=== PATIENT | female | born 1980 | race Caucasian/White ===

== ENCOUNTER 2016-08-24 21:28 | Emergency (ER) | payer OTHER ==
[2016-08-24] MEDS ORDERED: Orphenadrine Citrate IV* 30 MG/ML 2 ML VIAL IV ONE (21:49)
[2016-08-24] MEDS ORDERED: Dexamethasone IV* 4 MG/ML 5 ML VIAL (20 MG) IVPB ONE (21:49)
[2016-08-24] MEDS ORDERED: Ketorolac INJ* 30 MG/ML 1 ML VIAL IV PUSH ONE (21:50)
--- NOTE | 2016-08-24 22:07 | ED ---
Back Pain - HPI Summary HPI Summary: 36F presents with back pain starting today. She was lifting a couch when she felt a pulling sensation in her back. She states that she has never felt pain like this before. The pain stays in her lower back and does not radiate anywhere. She denies any numbness or tingling into the leg. She denies any fever, saddle anaesthesia, loss of bowel or bladder. She has not taken anything for the pain. - History of Current Complaint Chief Complaint: EDBackInjuryPain Stated Complaint: BACK INJURY Time Seen by Provider: 08/24/16 21:35 Pain Intensity: 5 - Allergies/Home Medications Allergies/Adverse Reactions: Allergies Allergy/AdvReac Type Severity Reaction Status Date / Time Orphenadrine Allergy Tachycardia Verified 08/25/16 00:44 PMH/Surg Hx/FS Hx/Imm Hx Endocrine/Hematology History: Denies: Hx Diabetes Cardiovascular History: Denies: Hx Hypertension Infectious Disease History: No Infectious Disease History: Denies: Traveled Outside the [place] in Last 30 Days - Family History Known Family History: Positive: Cardiac Disease - Social History Alcohol Use: Occasionally Substance Use Type: Reports: None Smoking Status (MU): Light Every Day Tobacco Smoker Review of Systems Negative: Fever Negative: Chest Pain Negative: Shortness Of Breath Positive: Myalgia - back pain All Other Systems Reviewed And Are Negative: Yes Physical Exam Triage Information Reviewed: Yes Vital Signs On Initial Exam: Initial Vitals Temp Pulse Resp BP Pulse Ox 99.2 F 82 16 120/78 99 08/24/16 21:29 08/24/16 21:29 08/24/16 21:29 08/24/16 21:29 08/24/16 21:29 Vital Signs Reviewed: Yes Appearance: Positive: Well-Appearing Skin: Positive: Warm, Dry Head/Face: Positive: Normal Head/Face Inspection Eyes: Positive: Normal, Conjunctiva Clear ENT: Positive: Normal ENT inspection, Pharynx normal, TMs normal Respiratory/Lung Sounds: Positive: Clear to Auscultation, Breath Sounds Present Cardiovascular: Positive: Normal, RRR Musculoskeletal: Positive: Limited @ - back due to pain, Other - tenderness to entire lower back greatest on right side, negative SLR, good pulses Diagnostics - Vital Signs Vital Signs Temp Pulse Resp BP Pulse Ox 08/24/16 21:29 99.2 F 82 16 120/78 99 - Laboratory Lab Statement: Any lab studies that have been ordered have been reviewed, and results considered in the medical decision making process. - Radiology back Xray Interpretation: No Acute Changes Radiology Interpretation Completed By: Radiologist Re-Evaluation - Re-Evaluation First Eval Comment: when gave patient noriflex pateint heart rate increased and chest felt tight but symptoms quickly resolved. denied any throat swelling Second Eval Change: Improved Comment: after toradol and noriflex patient pain improved and wanted to be d/c Back Pain Course/Dx - Course Course Of Treatment: 36 F presents with acute back pain started today after lifting couch. does not radiate anywhere. neg SLR. xray normal. when gave norflex patient heart started to race but symptoms quickly resloved. pulse was 88 and o2 stat 100. denies any SOB or throat swelling. observed and did not develop any signs of allergic reaction. patient felt better with norflex and toradol. will d/c home with muscle relaxer, patient agrees with plan - Diagnoses Differential Diagnosis/HQI/PQRI: Positive: Fracture, Strain, Sprain Provider Diagnoses: Back pain Discharge - Discharge Plan Condition: Good Disposition: HOME Prescriptions: Cyclobenzaprine TAB* [Flexeril TAB*] 10 mg PO TID PRN #9 tab PRN Reason: Pain Patient Education Materials: Low Back Strain (ED) Forms: *Work Release Referrals: Maria Antonia Teixeira [Primary Care Provider] - Additional Instructions: Take muscle relaxers three times a day for 3 days Use ibuprofen or Tylenol for pain every 6 hours ice/heat area, move as much as possible Follow up with primary within 5 days Return to ED if unable to ambulate or develop any new or worsening symptoms
--- NOTE | 2016-08-24 22:48 | RAD ---
INDICATION: Back pain lifting a couch COMPARISON: None. TECHNIQUE: 5 views of the lumbar spine were obtained. FINDINGS: The vertebra are in normal alignment. No fracture is seen. Disc spaces appear maintained. . IMPRESSION: No evidence of fracture or subluxation.
[2016-08-25 00:38] VITALS: BP 116/78
== END 2016-08-25 00:30 | disposition home or self-care (01) ==
LOC: ED 21:28
DX: M54.9 Dorsalgia, unspecified (principal); X50.0XXA Overexertion from strenuous movement or load, initial encounter; X50.9XXA Other and unspecified overexertion or strenuous movements or postures, initial encounter; Y93.89 Activity, other specified; Y92.9 Unspecified place or not applicable; F17.200 Nicotine dependence, unspecified, uncomplicated
CPT/HCPCS: 72110; 96374; 96375; 99282; J1100; J1885; J2360

== ENCOUNTER 2017-07-19 14:03 | Emergency (ER) | payer OTHER ==
--- NOTE | 2017-07-19 15:37 | RAD ---
INDICATION: Left arm swelling. COMPARISON: There are no prior studies available for comparison. TECHNIQUE: Multiple real-time, color flow and Doppler tracings of the left upper extremity were obtained. FINDINGS: The axillary, brachial, basilic and cephalic veins all demonstrate normal compressibility, augmentation with compression and phasic response with respiration. The subclavian and internal jugular veins also demonstrate normal color flow imaging and phasic response with respiration. IMPRESSION: NO EVIDENCE FOR DEEP VENOUS THROMBOSIS.
--- NOTE | 2017-07-19 16:04 | ED ---
Upper Extremity Pain - HPI Summary HPI Summary: 37 female presents to ED with complaints of left deltoid firmness, swelling, pain and redness that began 4 days ago. Patient states she had the depo shot in her arm June 11 and had similar symptoms after the shot however they resolved after a few weeks. 4 days ago symptoms returned and seem to be bigger/ worse than the first time. Denies fever/chills, nausea and any other complaints at this time. Hss had depo shot multiple times in the past without symptoms similar to this last time. No medications. No PMHx. Hurts worse to move her arm and stretch it across her body. Describes pain to be throbbing. Denies numbness/ tingling. - History of Current Complaint Chief Complaint: EDExtremityUpper Stated Complaint: SENT BY TO R/O BLOOD CLOT Time Seen by Provider: 07/19/17 14:21 Hx Obtained From: Patient Mechanism Of Injury: Unknown - depo shot reaction? Onset/Duration: Started Days Ago, Still Present, Worse Since Timing: Constant Severity Initially: Moderate Severity Currently: Moderate Pain Location: Shoulder - left Character: Aching, Throbbing Aggravating Factor(s): Movement Alleviating Factor(s): Rest Associated Signs & Symptoms: Positive: Swelling, Redness. Negative: Weakness, Numbness/Tingling, Nausea, Vomiting Related History: Dominant Hand Right - Allergies/Home Medications Allergies/Adverse Reactions: Allergies Allergy/AdvReac Type Severity Reaction Status Date / Time Orphenadrine Allergy Tachycardia Verified 08/25/16 00:44 PMH/Surg Hx/FS Hx/Imm Hx Endocrine/Hematology History: Denies: Hx Diabetes Cardiovascular History: Denies: Hx Hypertension - Surgical History Surgery Procedure, Year, and Place: n/a - Immunization History Date of Tetanus Vaccine: unknown Date of Influenza Vaccine: 04/2017 Immunizations Up to Date: Yes Infectious Disease History: No Infectious Disease History: Denies: Traveled Outside the [place] in Last 30 Days - Family History Known Family History: Positive: Cardiac Disease - Social History Alcohol Use: Occasionally Substance Use Type: Reports: None Smoking Status (MU): Light Every Day Tobacco Smoker Review of Systems Constitutional: Negative Cardiovascular: Negative Respiratory: Negative Positive: Arthralgia, Myalgia Positive: Rash, Other - swelling, firmness All Other Systems Reviewed And Are Negative: Yes Physical Exam Triage Information Reviewed: Yes Vital Signs On Initial Exam: Initial Vitals Temp Pulse Resp BP Pulse Ox 99.3 F 94 16 123/70 100 07/19/17 14:04 07/19/17 14:04 07/19/17 14:04 07/19/17 14:04 07/19/17 14:04 Vital Signs Reviewed: Yes Appearance: Positive: Well-Appearing, No Pain Distress, Well-Nourished Skin: Positive: Warm, Skin Color Reflects Adequate Perfusion, Dry, Erythema @ - lateral upper left arm mild, with some warmth, very indurated and firm to touch , no fluctuance approximately 8.5cm length and 5cm width, deltoid area. tender to touch. Negative: Cold, Numb Head/Face: Positive: Normal Head/Face Inspection Eyes: Positive: Conjunctiva Clear ENT: Positive: Hearing grossly normal Neck: Positive: Supple, Nontender, No Lymphadenopathy - axilla or cervical Respiratory/Lung Sounds: Positive: Clear to Auscultation, Breath Sounds Present. Negative: Rales, Rhonchi, Wheezes Cardiovascular: Positive: Normal, RRR, Pulses are Symmetrical in both Upper and Lower Extremities - 2+ radial. Negative: Murmur, Rub Musculoskeletal: Positive: Normal, Strength/ROM Intact, Abnormal @ - indurated area, described above, Pain @ - left shoulder/upper arm with palpation and movement, described above, Edema Left. Negative: Limited @, Interruption @ Neurological: Positive: Normal, Sensory/Motor Intact, Alert, Oriented to Person Place, Time, CN Intact II-III, Reflexes Intact, NV Bundle Intact Distally - [place] Coma Scale Coma Scale Total: 15 Diagnostics - Vital Signs Vital Signs Temp Pulse Resp BP Pulse Ox 07/19/17 14:04 99.3 F 94 16 123/70 100 - Laboratory Lab Statement: Any lab studies that have been ordered have been reviewed, and results considered in the medical decision making process. - Ultrasound No standard instances Ultrasound Interpretation: No Acute Changes - NO EVIDENCE FOR DEEP VENOUS THROMBOSIS. Ultrasound Interpretation Completed By: Radiologist Course/Dx - Course Course Of Treatment: u/s obtained and negative for DVT. CT and labs obtained. Dr Silver also evaluated patient and patient will be signed out to Dr Silver pending CT results and labs at shift change. Normal vitals and not showing any signs of sepsis. Possible reaction to depo versus musclur injury/swelling, concern for tenosynovitis. - Diagnoses Differential Diagnosis/HQI/PQRI: Positive: Strain, Sprain, Other - abscess, tenosynovitis, soft tissue swelling Provider Diagnoses: Left upper arm pain, Left arm swelling - Physician Notifications Discussed Care of Patient With: Dr Silver, signed out at shift change Discharge - Discharge Plan Condition: Stable Disposition: OTHER Discharge Disposition Comment: signed out to Dr Silver at shift change pending lab and imaging results Referrals: Maria Antonia Teixeira [Primary Care Provider] -
[2017-07-19 17:43] LABS: ABS Basophils 0 10^3/ul (0-0.2); ABS Eosinophils 0.1 10^3/ul (0-0.6); ABS Lymphocytes 2.4 10^3/ul (1.0-4.8); ABS Monocytes 1.3 10^3/ul (0-0.8); ABS Neutrophils 5.8 10^3/ul (1.5-7.7); ABS Nucleated RBC 0 10^3/ul; Eosinophil % 0.6 % (0-6); Hematocrit 39 % (35-47); Hemoglobin 13.4 g/dl (12.0-16.0); Lymphocyte % 25.4 % (25-47); Mean Corpuscular HGB Conc 35 g/dl (31-36); Mean Corpuscular Hemoglobin 31 pg (27-31); Mean Corpuscular Volume 90 fL (80-97); Mean Platelet Volume 7 um3 (7.4-10.4); Nucleated Red Blood Cells % 0; Platelet Count 262 10^3/ul (150-450); Red Blood Count 4.28 10^6/ul (4.0-5.4); Red Cell Distribution Width 13 % (10.5-15); White Blood Count 9.6 10^3/ul (3.5-10.8)
[2017-07-19 17:55] LABS: EGFR Non-African American 106.3 (>60)
[2017-07-19] MEDS ORDERED: Iohexol 300* (CONTRAST) 10 ML SDV IV ONE (18:24)
--- NOTE | 2017-07-19 18:57 | RAD ---
INDICATION: Left arm swelling. COMPARISON: There are no prior studies available for comparison. TECHNIQUE: Contiguous axial sections were obtained of the left upper arm. Images were reconstructed in the sagittal and coronal planes. The exam was performed following intravenous injection of 100 mL of Omnipaque 300 nonionic contrast. FINDINGS: There is a fluid collection just distal to the level of the proximal humeral metaphysis present in the soft tissues of the lateral aspect of the arm within the deltoid muscle with a thick irregular wall measuring 5.5 x 2.4 x 2.8 cm. Deep to that area there is a second smaller less well-defined hypodense area measuring 1.2 x 1.2 x 0.8 cm. The larger areas most consistent with an abscess. The small area may represent an early abscess or area of focal myositis. There is mild adjacent soft tissue swelling. The bones are normal in density without focal erosion or periosteal reaction. IMPRESSION: THERE IS A FLUID COLLECTION IN THE LATERAL ASPECT OF THE PROXIMAL ARM WITHIN THE DELTOID MUSCLE MOST CONSISTENT WITH AN ABSCESS. THERE IS A SECOND SMALLER LOWER DENSITY AREA DEEP TO THE LARGER COLLECTION.
[2017-07-19] MEDS ORDERED: Cephalexin CAP* 500 MG PO ONE (21:19)
[2017-07-19] MEDS ORDERED: Sulfamethox/Trimethoprim DS 800/160* TAB PO ONE (21:19)
--- NOTE | 2017-07-19 21:22 | UC ---
- Progress Note Progress Note: After speaking wtih Dr. Alejandre we agreed that prompt outpatient follow up at clinic [facility] tomorrow morning would be appropriate. Pt give 1 dose of abx and instructed to be NPO after midnight tonight. No evdience of SIRS, vital signs stable. Distal neurovascular exam remains normal, pt agrees to and understnads dc instructions. Course/Dx - Course Course Of Treatment: u/s obtained and negative for DVT. CT and labs obtained. Dr Silver also evaluated patient and patient will be signed out to Dr Silver pending CT results and labs at shift change. Normal vitals and not showing any signs of sepsis. Possible reaction to depo versus musclur injury/swelling, concern for tenosynovitis. - Diagnoses Provider Diagnoses: Left upper arm pain, Left arm swelling, Abscess of deltoid region - Provider Notifications Discussed Care Of Patient With: Mark Alejandre
[2017-07-19 22:37] VITALS: BP 127/76
== END 2017-07-19 22:36 | disposition home or self-care (01) ==
LOC: ED 14:03
DX: L02.414 Cutaneous abscess of left upper limb (principal); M79.622 Pain in left upper arm; M79.89 Other specified soft tissue disorders; F17.210 Nicotine dependence, cigarettes, uncomplicated; R21 Rash and other nonspecific skin eruption
CPT/HCPCS: 36415; 80053; 82550; 82553; 85025; 86140; 99283; A9270-GY; Q9967

== ENCOUNTER 2017-10-27 14:08 | Emergency (ER) | payer OTHER ==
[2017-10-27 14:16] VITALS: BP 118/75
--- NOTE | 2017-10-27 14:54 | UC ---
Truncal Trauma HPI - HPI Summary HPI Summary: 37 y/o female s/p fall 10/24 while jogging, no head injury, LOC, fell onto bank landing on L side- now with L sided pain, worse with deep breathing, pain beneath L breast, muslce spasms, pain in lower back, between shoulder blades. decreased sleeping due to pain. pain worse at lateral L ribs. no h/o injuries , back trauma. pain meds- tried motrin, no help. no h/o osteopenia. denies PMH, meds- depo. no loss bowel, bladder function - History Of Current Complaint Chief Complaint: UCUpperExtremity Stated Complaint: SHOULDER, RIB INJURY Time Seen by Provider: 10/27/17 14:37 Hx Obtained From: Patient Hx Last Menstrual Period: depo ?: No Onset/Duration: Sudden Onset, Lasting Days Onset Of Pain: Immediate Severity Initially: Severe Severity Currently: Severe Pain Intensity: 9 Pain Scale Used: 0-10 Numeric Mechanism Of Injury: Blunt Trauma Aggravating Factor(s): Deep Breathing, Cough Alleviating factor(s): Rest - Allergies/Home Medications Allergies/Adverse Reactions: Allergies Allergy/AdvReac Type Severity Reaction Status Date / Time orphenadrine Allergy Tachycardia Verified 10/27/17 14:16 PMH/Surg Hx/FS Hx/Imm Hx Previously Healthy: Yes - Surgical History Surgical History: Yes Surgery Procedure, Year, and Place: cholecystectomy, csections x2 - Family History Known Family History: Positive: Cardiac Disease - Social History Alcohol Use: Occasionally Substance Use Type: None Smoking Status (MU): Light Every Day Tobacco Smoker Type: Cigarettes Household Exposure Type: Cigarettes Review of Systems Skin: Bruising Musculoskeletal: Arthralgia, Decreased ROM, Myalgia Is Patient Immunocompromised?: No All Other Systems Reviewed And Are Negative: Yes Physical Exam Triage Information Reviewed: Yes Appearance: Well-Appearing, Well-Nourished, Pain Distress - mild to moderate Vital Signs: Initial Vital Signs Temp 98.6 F 10/27/17 14:13 Pulse 84 10/27/17 14:13 Resp 18 10/27/17 14:13 BP 118/75 10/27/17 14:13 Pulse Ox 100 10/27/17 14:13 Vital Signs Reviewed: Yes Eyes: Positive: Conjunctiva Clear Neck: Positive: Supple, Nontender, No Lymphadenopathy Respiratory: Positive: Lungs clear, Normal breath sounds, No respiratory distress, No accessory muscle use, Other: - tenderness to paraspinal muscles, scalene, SCM on L side with palpation, no tenderness over cervical spine. + tenderness medial to scapula Cardiovascular: Positive: RRR, No Murmur Musculoskeletal: Positive: No Edema, ROM Limited @ - decreased FF, ABD of L arm due to pain Neurological Exam: Normal - able to stand on one foot alternation, run foot up vázquez, FF, side to side at hips intact. SITLT b/l LE, UE Neurological: Positive: Other: - NVI upper extemities Psychological Exam: Normal Truncal Trauma Course/Dx - Course Course Of Treatment: rib contusion, lower back strain, muscle spasms, eercises given, muscle relaxer, work note - Differential Dx/Diagnosis Provider Diagnoses: lower back strain, muscle spasm, rib contusion Discharge - Sign-Out/Discharge Documenting (check all that apply): Discharge - Discharge Plan Condition: Fair Disposition: HOME Prescriptions: diazePAM [Valium] 5 mg PO Q8H #15 tablet MDD 3 Lidocaine PATCH 5%* [Lidoderm 5% Patch*] 1 patch TRANSDERM DAILY #10 patch Naproxen TAB* [Naprosyn 250 mg TAB*] 2 tab PO Q12HR PRN #20 tab PRN Reason: Pain Naproxen TAB* [Naprosyn 250 mg TAB*] 2 tab PO Q21H PRN #40 tab PRN Reason: Pain Patient Education Materials: Muscle Strain (ED), Rib Contusion (ED) Forms: *Work Release Referrals: Maria Antonia Teixeira [Primary Care Provider] - Additional Instructions: - increase rest - Valium for muscle spasms- help with sleep. Do not take until no responsibilities for 8 hours until affects of medication known - naproxen every 12 hours for 5 days to decrease swelling, pain - return with shortness of breath, increased pain, coughing up blood - try to take deep breaths to prevent pneumonia - Billing Disposition and Condition Condition: FAIR Disposition: HOME
== END 2017-10-27 15:03 | disposition home or self-care (01) ==
LOC: UCEAST 14:08
DX: S39.012A Strain of muscle, fascia and tendon of lower back, initial encounter (principal); S20.20XA Contusion of thorax, unspecified, initial encounter; W18.30XA Fall on same level, unspecified, initial encounter; Y93.02 Activity, running; Y92.9 Unspecified place or not applicable; M62.838 Other muscle spasm; Z88.8 Allergy status to other drugs, medicaments and biological substances; F17.210 Nicotine dependence, cigarettes, uncomplicated
CPT/HCPCS: 99212; G0463